=== PATIENT | female | born 1995 ===

== ENCOUNTER 2023-07-30 23:41 | Inpatient (IN) | payer OTHER, SELFPAY ==
[2023-07-31] VITALS (113 sets, daily range): BP systolic 73–149; BP diastolic 46–119; PULSE 55–199; RESP 16–18; TEMP 36.6–37.4; O2SAT 79–100; BMI 29.1
[2023-07-31] MEDS: LACTATED RINGERS 1,000 ML 125 ML IV CONT ×2 (00:10→01:00)
[2023-07-31 00:25] LABS: Basophils Percent Auto 0.3 % (0.2-1.2); Eosinophils Percent Auto 0.2 % (0-4.4); Hematocrit 38.5 % (37.0-47.0); Hemoglobin 12.6 g/dL (12.0-15.0); Immature Granulocyte Percent A 0.8 % (0-0.5); Lymphocytes Percent Auto 9.1 % (18.3-44.2); Mean Corpuscular HGB Conc 32.7 g/dl (32-36); Mean Corpuscular Volume 97.7 fl (80-100); Monocytes Absolute Auto 0.3 K/mm3 (0.1-0.6); Monocytes Percent Auto 2.4 % (2.6-8.5); Neutrophils Absolute Auto 11.5 K/mm3 (1.3-6.7); Neutrophils Percent Auto 87.2 % (45.5-73.1); Platelet Count Result 189 k/mm3 (150-375); Red Blood Count 3.94 M/mm3 (4.2-5.4); Red Cell Distribution Width 12.9 % (11.5-14.5); White Blood Count 13.2 K/mm3 (4.5-10.0)
--- NOTE | 2023-07-31 00:43 | P.PNAN_ITS ---
Anes - Eval Pre Procedure Procedure: labor epidural Date/Time: 07/31/23 00:43 Surgeon: darshana Preop Diagnosis: pain during labor Pre Op Diagnosis: Contractions Patient Data Age: 28 Gender: F Height: 1.63 m Weight: 77 kg Last Vital Signs Pulse 59 L 07/31/23 00:32 BP 149/74 H 07/31/23 00:32 O2 Del Method Room Air 07/31/23 00:12 Allergies Allergy/AdvReac Type Severity Reaction Status Date / Time No Known Allergies Allergy Verified 07/08/23 12:24 Home Medications Medication Instructions Recorded Confirmed Type vits no.126-ferrous fum 1 tablet PO DAILY 07/08/23 07/31/23 History 28 mg iron-folic acid 800 mcg tablet (Classic ) Laboratory Tests 07/31/23 00:11 WBC 13.2 H K/mm3 (4.5-10.0) RBC 3.94 L M/mm3 (4.2-5.4) Hgb 12.6 g/dL (12.0-15.0) Hct 38.5 % (37.0-47.0) MCV 97.7 fl (80-100) MCH 32.0 pg (26-34) MCHC 32.7 g/dl (32-36) RDW 12.9 % (11.5-14.5) Plt Count 189 k/mm3 (150-375) MPV 11.0 H fl (7.4-10.4) Immature Gran % (Auto) 0.8 H % (0-0.5) Neut % (Auto) 87.2 H % (45.5-73.1) Lymph % (Auto) 9.1 L % (18.3-44.2) [place] % (Auto) 2.4 L % (2.6-8.5) Eos % (Auto) 0.2 % (0-4.4) Baso % (Auto) 0.3 % (0.2-1.2) Lymph # (Auto) 1.20 K/mm3 (0.9-3.2) [place] # (Auto) 0.3 K/mm3 (0.1-0.6) Eos # (Auto) 0.0 K/mm3 (0-0.3) Baso # (Auto) 0.0 K/mm3 (0.0-0.1) Abs Immat Gran (auto) 0.10 H K/mm3 (0.00-0.031) Absolute Neuts (auto) 11.5 H K/mm3 (1.3-6.7) Absolute Nucleated RBC 0.0 K/mm3 (0.0-0.012) Nucleated RBC % 0.0 % (0.0-0.2) RPR Pending Patient hx anesthesia problems: none Family hx anesthesia problems: none Results Review: All pre-operative results and documents have been reviewed as part of the pre- operative evaluation. [facility] Past Medical History Medical History (Updated 07/31/23 @ 00:43 by Tanya Suarez CRNA) IUP (intrauterine ), incidental Family History Family History (Updated 07/08/23 @ 12:37 by Kira Jessica RN) Grandparent Diabetes mellitus Family history of lung cancer MDS (myelodysplastic syndrome) Social History Social History Smoking status: Never smoker Alcohol intake: never Substance use: never Lack of Transportation: No Lack of Food: Never True Current Housing: I Have Housing Concerned About Future Housing: No Difficulty Paying Gas/Electric Bills: No Difficulty Paying for Meds: No Currently Unemployed: No Education: Master's Degree or Higher Difficulty w/ Childcare or Family Care: No Spiritual care concerns: No Exam Day of Procedure 07/31/23 00:43
--- NOTE | 2023-07-31 02:32 | WPDOBADMIT ---
Obstetrics - Admit Note Admission Note: record reviewed. Additions to the history and/or subsequent changes in the physical findings follow. 28 y/oG1 at 40 1/7 weeks here with contractions since 11am, worsening over the evening. GBS neg. uncomplicated. AVSS NST reactive TOCO: contractions every 3-6 min ABD soft, nontender, gravid, vertex EXT nontender Cervix 8-9/100/-1 A: IUP at term with labor P: Augment as needed.
[2023-07-31] MEDS: OXYTOCIN 30 UNITS/NS 500 ML 30 UNITS/500 ML BAG IV CONT (03:06)
--- NOTE | 2023-07-31 06:13 | PM.OBPRVD ---
OB - Delivery Note Procedure Delivery date: 07/31/23 Procedure: Induction method: None Delivery monitor: External FHT and External Uterine Route of delivery: Episiotomy description: Midline Delivery repair: vicryl (3-0) Specimen: Yes Quantitative Blood Loss (ml): 85 Anesthesia type: Epidural Disposition: PACU Complications: None Narrative: 28 y/o G1 at 40 1/7 weeks gestation who presented to the hospital with contractions. Her cervix was found to be 7 cm dilated at the time of admission. There was no amniotic sac detected, and time of ROM was unknown. She received an epidural for pain control. Her labor progressed slowly. We attempted oxytocin augmentation, but FHR abnormalities prevented augmentation. Her cervix dilated completely. She pushed with good effort. A midline episiotomy was made, and the infant's head delivered to the perineum. A loose nuchal cord was splinted and the body delivered. The cord was reduced. The nose and mouth were bulb suctioned. The cord was clamped and cut. The was handed off the field. Cord blood was collected. The placenta delivered spontaneously and was grossly normal in appearance. The usual 3 vessel cord was noted. The MLE was noted to be free of extension and was repaired using 3 0 Vicryl in the usual layered fashion. Excellent hemostasis resulted as did excellent reapproximation of the normal anatomy. Needle and instrument counts were correct. The patient was taken to recovery room in stable condition. The infant went to the nursery in stable condition. I was present and scrubbed for the entire delivery. Baby Date of : 07/31/23 Time of : 05:56 Weeks of gestation at delivery: 40 gender: Male Weight (pounds): 5 Weight (ounces): 12 presentation: vertex position: Left Occiput Anterior Placenta delivery description: Spontaneous and Normal Configuration Cord Vessel Description: 3 Vessels, Nuchal Cord and Clamped/Cut score one minute: 3 score five minutes: 9
--- NOTE | 2023-07-31 06:21 | PM.OBDSVD ---
DS: Admitting Diagnosis Discharge Date 08/01/23 Admitting Diagnosis IUP at 40 1/7 weeks Labor DS: Discharge Diagnosis Discharge Diagnosis (1) (normal spontaneous vaginal delivery): Code(s): O80 - Encounter for full-term uncomplicated delivery Status: Acute OB - DS: Summary OB Procedures : None OB Procedures Intrapartum: Spontaneous Vag Delivery OB Procedures: : None Time Spent with Patient Time attestation: Total time spent providing and/or coordinating discharge services: DS: Data Data Completed and Pending Labs on day of discharge: Labs from last 24 hours 07/31/23 00:11 WBC 13.2 H RBC 3.94 L Hgb 12.6 Hct 38.5 MCV 97.7 MCH 32.0 MCHC 32.7 RDW 12.9 Plt Count 189 MPV 11.0 H Immature Gran % (Auto) 0.8 H Neut % (Auto) 87.2 H Lymph % (Auto) 9.1 L [place] % (Auto) 2.4 L Eos % (Auto) 0.2 Baso % (Auto) 0.3 Lymph # (Auto) 1.20 [place] # (Auto) 0.3 Eos # (Auto) 0.0 Baso # (Auto) 0.0 Abs Immat Gran (auto) 0.10 H Absolute Neuts (auto) 11.5 H Absolute Nucleated RBC 0.0 Nucleated RBC % 0.0 RPR Pending Blood Type O Positive Antibody Screen Negative Discharge Plan Discharge Attending physician on discharge: Marty Good Consulting providers: Tanya Suarez Discharging Clinician: Marty Good Patient Disposition: Home, Self-Care Activity: pelvic rest Diet: regular Discharge Instructions: Call or return if temperature above 100.4? F, increased abdominal pain, increased vaginal bleeding or any new problems. Education: Mom and Baby Guide Given to: Mother Follow-Up: Call your delivering provider's office for an appointment to be seen in: 6 Weeks Mom and baby should come to the [facility] for the follow-up appointment. Appointment Date/Time: August 02, 2023 at 8:00 am What to expect at your follow-up visit: Physical Assessment Call [phone] if you are unable to keep your appointment time. BREAST CARE: * Wear a snug supportive bra. * For engorgement discomfort: Breast Feeding: * Apply warm moist washcloths * Express milk as needed to relieve engorgement * Wear loose clothing Bottle Feeding: * May apply ice packs * For sore nipples: * Identify correct latch-on * Apply warm moist washcloths before and after nursing * Air dry nipples after nursing * May apply Lansinoh cream to nipples EPISIOTOMY/PERINEAL CARE: * Until bleeding stops, use your mana bottle after urinating * Change your pad frequently throughout the day * You may take sitz baths several times a day (fill your bathtub with warm water and soak for 20 minutes.) Do NOT bathe in the water * No tub baths until seen by your physician - You may shower ACTIVITY: * Rest as much as possible. * Do not exercise or lift anything heavier than your baby (such as laundry or other children.) * Avoid stairs or driving as much as possible. * Do not put anything into the vagina. No douching, tampons, or sexual activity until seen by physician. NOTIFY PHYSICIAN IF YOU HAVE ANY QUESTIONS OR IF ANY OF THE FOLLOWING SYMPTOMS OCCUR: * If your episiotomy becomes red, swollen, or more painful than what you have experienced in the hospital. * If your vaginal bleeding becomes foul smelling. * If your vaginal bleeding becomes more heavy than a period or if your bleeding changes from pink to bright red. However, you may pass an occasional walnut-sized clot once or twice for the first week . * If you experience a sharp, shooting pain in you calves. * If you discover a hard, reddened area on your breast or if you experience flu-like symptoms. DIET: * Eat regular, well-balanced meals. * Drink plenty of fluids daily. If , drink to thirst. Stand Alone Forms: General Discharge Information Follow-up/Referrals: Marty Good MD
[2023-07-31] MEDS: OXYTOCIN 30 UNITS/NS 500 ML 30 UNITS/500 ML BAG 125 UNITS IV CONT (06:31)
[2023-07-31] MEDS: BENZOCAINE 20% AER SPR (*SP) 56 GM CAN 1 SPRAY TOPICAL (08:16)
[2023-07-31] MEDS: WITCH HAZEL 40 PADS 1 PAD TOPICAL (08:16)
[2023-07-31] MEDS: IBUPROFEN 600 MG TABLET PO ×3 (08:50→23:06)
--- NOTE | 2023-07-31 09:00 | PC.NURSE ---
Pt arrived from L&D to room 279. VSS, pitocin infusing, admission completed, resting quietly.
[2023-07-31 11:06] LABS: Rapid Plasma Reagin Non-Reactive (NonReactive)
[2023-07-31] MEDS: MULTIVIT/MIN/PREN/FOL AC/IRON TABLET 1 TAB PO (13:58)
[2023-08-01 04:52] LABS: Hematocrit 35.4 % (37.0-47.0); Hemoglobin 11.4 g/dL (12.0-15.0)
[2023-08-01] MEDS: MULTIVIT/MIN/PREN/FOL AC/IRON TABLET 1 TAB PO (07:15)
[2023-08-01] MEDS: IBUPROFEN 600 MG TABLET PO (07:15)
--- NOTE | 2023-08-01 07:56 | PM.DS ---
DS: Admitting Diagnosis Discharge Date 08/01/2023 Admitting Diagnosis term DS: Discharge Diagnosis Discharge Diagnosis (1) (normal spontaneous vaginal delivery): Code(s): O80 - Encounter for full-term uncomplicated delivery Status: Acute DS: Summary Hospital Course Reason for hospitalization: patient was admitted in labor Hospital Course: patient underwent spontaneous vaginal delivery which was unremarkable. Her hospital course unremarkable. She was , voiding the difficulty, eating regular diet, ambulating, generally without complaints. Time Spent with Patient Time attestation: Total time spent providing and/or coordinating discharge services: Exam Const: General: cooperative, healthy appearing and comfortable Nutritional Appearance: average body habitus Orientation/consciousness: oriented to person, oriented to place and oriented to time HENMT: Head: normal to inspection Resp: Effort & Inspection: normal respiratory effort Cardio: Rate: regular rate Rhythm: regular rhythm Heart sounds: S1 normal heart sound present and S2 normal heart sound present GI: Inspection: normal to inspection ( Fundus firm below umbilicus) DS: Data Data Completed and Pending Labs on day of discharge: Labs from last 24 hours 08/01/23 07/31/23 04:15 00:11 Hgb 11.4 L Hct 35.4 L RPR Non-reactive Discharge Plan Discharge Attending physician on discharge: Marty Good Discharging Clinician: Marty Good Patient Disposition: Home, Self-Care Activity: pelvic rest Diet: regular Discharge Instructions: Call or return if temperature above 100.4? F, increased abdominal pain, increased vaginal bleeding or any new problems. Stand Alone Forms: General Discharge Information Follow-up/Referrals: Marty Good MD [Physician] - 6 Weeks Discharge Medications: New ibuprofen 600 mg tablet 600 mg PO Q6H PRN (Reason: cramps) Qty: 30 0RF Continued Classic 28 mg iron- 800 mcg Tablet 1 tablet PO DAILY Date of admission: 07/30/23 23:41 Primary Care Provider: PHYSICIAN,ENGINEERING SPECIALIST TECHNICIAN Admitting Provider: Marty Good Attending physician on admission: Marty Good Condition: Stable
--- NOTE | 2023-08-01 07:58 | PM.OBPNVD ---
OB - PN: Subj Subjective Date/time seen: 08/01/23 07:58 Patient comments: no complaints and pain well controlled baby status: doing well and nursing well OB - PN: Obj Data Labs 08/01/23 04:15 Labs: Laboratory Results - last 24 hr 07/31/23 08/01/23 00:11 04:15 Hgb 11.4 L Hct 35.4 L RPR Non-reactive OB - PN A/P Plan day: 1 Plan: routine care, discharge home and follow up 6 weeks Time Spent With Patient Time: Total time spent is greater than 50% in coordination of care (as documented) at patient's floor/unit and/or counseling patient: Time with patient: less than 15 minutes Exam Const: General: cooperative, healthy appearing and comfortable Nutritional Appearance: average body habitus Orientation/consciousness: oriented to person, oriented to place and oriented to time Resp: Effort & Inspection: normal respiratory effort GI: Inspection: normal to inspection ( fundus firm below the umbilicus)
[2023-08-01 08:15] VITALS: BP 113/67; PULSE 68; RESP 16; TEMP 36.4; O2SAT 100
--- NOTE | 2023-08-01 10:49 | PC.NURSE ---
Patient viewed the discharge video Mother & Baby Care, The First Two Weeks . Patient was given the opportunity and encouraged to ask questions. Patient verbalized understanding of information shared and has been given the mother/baby guide for home reference.
--- NOTE | 2023-08-01 10:55 | PC.NURSE ---
[id number] Introductions were made, then consulted with patient to assess needs related to . Mother led the conversation with her?plans to feed?her infant, the?experience so far and is demonstrating an independent latch to the left breast using cross cradle positioning. Reviewed positioning, alignment with infants body close to mother. Education given to mother of how to visualize suck/swallows. Infant was able to maintain latch without discomfort to mother. Nipple care reviewed with optimal latch and good positioning. Reminding mother of comfort measures of healing with a warm and wet washcloth to rinse breast, then leave open to air-dry as needed. Reviewed good handwashing when or touching the breast/nipples to prevent infection. Resources used to facilitate learning were used with the mom and baby guide. Mother voiced understanding of skin to skin, stimulating with massage touch, responsive feedings, hand expressed colostrum, talking to to encourage if it has been 2 -2.5 hours since the start of the last , to call if infant does not latch, or if there is discomfort with . Resources provided for inpatient/outpatient with name written on the communcation board and the mom/baby guide. Parents voiced understanding of information, demonstrated learning and will call if there is a request for assistance. Reported to the Primary RN.
[2023-08-02 08:23] VITALS: BP 131/75; PULSE 82; RESP 18; TEMP 36.9; O2SAT 100
== END 2023-08-01 12:32 | disposition home or self-care (01) | DRG 807 ==
LOC: ANHLDR 07-31 06:22 → ANHOB2 07-31 08:40
PROVIDERS: Admitting Provider Obstetrics & Gynecology; Visit Provider Obstetrics & Gynecology
DX: O32.6XX0 Maternal care for compound presentation, not applicable or unspecified (principal); Z37.0 Single live birth; Z3A.40 40 weeks gestation of pregnancy; O69.81X0 Labor and delivery complicated by cord around neck, without compression, not applicable or unspecified
CPT/HCPCS: 36415; 85014; 85018; 85025; 86592; 86850; 86900; 86901; A9270; J2590; J2795; J7120

== ENCOUNTER 2025-04-15 01:35 | Inpatient (IN) | payer OTHER, SELFPAY ==
[2025-04-15] VITALS (99 sets, daily range): BP systolic 84–153; BP diastolic 34–126; PULSE 57–112; RESP 16–18; TEMP 36.4–37.3; O2SAT 79–100; BMI 30.9
--- NOTE | 2025-04-15 03:01 | LDADM ---
This patient, Deysi Sotomayor, was admitted to Labor/Delivery/Recovery 106 on 04/15/25 at 01:35. Plans for labor, pain management and were discussed with patient. Patient/family oriented to hospital policies and general routines including ID bracelet, bed and alarms, visiting hours, pain management, procedures, bathroom and other care routines, personal items, smoking policy, room service/diet and guest tray routines, security routines, and visiting hours. Patient/Family are encouraged to report perceived risks to care and to ask questions if they do not understand what they are told or what they should do. See OBIX for further documentation.
[2025-04-15] MEDS: LACTATED RINGERS 1,000 ML 125 ML IV CONT ×2 (03:15→03:54)
[2025-04-15 03:25] LABS: Basophils Absolute Auto 0.1 K/mm3 (0.0-0.1); Basophils Percent Auto 0.5 % (0.2-1.2); Eosinophils Absolute Auto 0.2 K/mm3 (0-0.3); Eosinophils Percent Auto 1.2 % (0-4.4); Hematocrit 34.2 % (37.0-47.0); Hemoglobin 10.4 g/dL (12.0-15.0); Immature Granulocyte Absolute 0.06 K/mm3 (0.00-0.031); Immature Granulocyte Percent A 0.5 % (0-0.5); Lymphocytes Absolute Auto 1.66 K/mm3 (0.9-3.2); Lymphocytes Percent Auto 12.9 % (18.3-44.2); Mean Corpuscular HGB Conc 30.4 g/dl (32-36); Mean Corpuscular Hemoglobin 27.7 pg (26-34); Mean Corpuscular Volume 91.2 fl (80-100); Mean Platelet Volume 11.5 fl (7.4-10.4); Monocytes Absolute Auto 0.7 K/mm3 (0.1-0.6); Monocytes Percent Auto 5.7 % (2.6-8.5); Neutrophils Absolute Auto 10.2 K/mm3 (1.3-6.7); Neutrophils Percent Auto 79.2 % (45.5-73.1); Platelet Count Result 183 k/mm3 (150-375); Red Blood Count 3.75 M/mm3 (4.2-5.4); Red Cell Distribution Width 13.6 % (11.5-14.5); White Blood Count 12.9 K/mm3 (4.5-10.0)
--- NOTE | 2025-04-15 04:02 | P.PNAN_ITS ---
Anes - Eval Pre Procedure Procedure: labor pain management Date/Time: 04/15/25 04:02 Surgeon: Fadi Hubbard Preop Diagnosis: pain during labor Pre Op Diagnosis: Contractions Patient Data Age: 29 Gender: F Height: 1.63 m Weight: 81.81 kg Last Vital Signs Pulse 83 04/15/25 04:00 BP 127/80 04/15/25 04:00 Pulse Ox 98 04/15/25 03:58 O2 Del Method Room Air 04/15/25 03:01 Allergies Allergy/AdvReac Type Severity Reaction Status Date / Time No Known Allergies Allergy Verified 07/08/23 12:24 Home Medications ?Medication ?Instructions ?Recorded ?Confirmed ?Type vits no.126-ferrous fum 1 tablet PO DAILY 07/08/23 03/29/25 History 28 mg iron-folic acid 800 mcg tablet (Classic ) Laboratory Tests 04/15/25 03:17 WBC 12.9 H K/mm3 (4.5-10.0) RBC 3.75 L M/mm3 (4.2-5.4) Hgb 10.4 L g/dL (12.0-15.0) Hct 34.2 L % (37.0-47.0) MCV 91.2 fl (80-100) MCH 27.7 pg (26-34) MCHC 30.4 L g/dl (32-36) RDW 13.6 % (11.5-14.5) Plt Count 183 k/mm3 (150-375) MPV 11.5 H fl (7.4-10.4) Immature Gran % (Auto) 0.5 % (0-0.5) Neut % (Auto) 79.2 H % (45.5-73.1) Lymph % (Auto) 12.9 L % (18.3-44.2) [place] % (Auto) 5.7 % (2.6-8.5) Eos % (Auto) 1.2 % (0-4.4) Baso % (Auto) 0.5 % (0.2-1.2) Lymph # (Auto) 1.66 K/mm3 (0.9-3.2) [place] # (Auto) 0.7 H K/mm3 (0.1-0.6) Eos # (Auto) 0.2 K/mm3 (0-0.3) Baso # (Auto) 0.1 K/mm3 (0.0-0.1) Abs Immat Gran (auto) 0.06 H K/mm3 (0.00-0.031) Absolute Neuts (auto) 10.2 H K/mm3 (1.3-6.7) Absolute Nucleated RBC 0.000 K/mm3 (0.0-0.012) Nucleated RBC % 0.0 % (0.0-0.2) HIV 1&2 Ab/P24 Ag 4thGn Pending Patient hx anesthesia problems: none Family hx anesthesia problems: none Results Review: All pre-operative results and documents have been reviewed as part of the pre- operative evaluation. [facility] Past Medical History Medical History IUP (intrauterine ), incidental Family History Family History Grandparent Diabetes mellitus Family history of lung cancer MDS (myelodysplastic syndrome) Social History Social History Smoking status: Never smoker Second hand tobacco smoke exposure: No Alcohol intake: never Substance use: never Do You Feel Safe in your Home?: Yes Lack of Transportation: No Lack of Food: Never True Current Housing: I Have Housing Concerned About Future Housing: No Difficulty Paying Gas/Electric Bills: No Difficulty Paying for Meds: No Currently Unemployed: No Education: Master's Degree or Higher Difficulty w/ Childcare or Family Care: No Spiritual care concerns: No Exam Day of Procedure 04/15/25 04:02
[2025-04-15 04:12] LABS: Syphilis IgG/IgM Antibody Negative (Negative)
[2025-04-15 04:37] LABS: HIV 1/2 Ab P24 Ag Result Negative (Negative)
[2025-04-15] MEDS: PHENYLEPHRINE 1,000 MCG/10 ML SYRINGE 100 MCG IV PUSH ×3 (04:55→05:20)
--- NOTE | 2025-04-15 05:49 | P.HP_ITS ---
H&P: HPI History of Present Illness Date/Time: 04/15/25 05:49 Chief Complaint: Labor at term Narrative: A 28-year-old 2 para with EDC of 04/18/2025 confirmed by 9 week ultrasound presents at 39 half weeks gestation in active labor she is negative for group B strep in her has been uncomplicated Review of Systems Review of Systems: All systems reviewed & are unremarkable except as noted in HPI and below PMFSH Past Medical History Medical History IUP (intrauterine ), incidental Family History Family History Grandparent Diabetes mellitus Family history of lung cancer MDS (myelodysplastic syndrome) Social History Social History Smoking status: Never smoker Second hand tobacco smoke exposure: No Alcohol intake: never Substance use: never Do You Feel Safe in your Home?: Yes Lack of Transportation: No Lack of Food: Never True Current Housing: I Have Housing Concerned About Future Housing: No Difficulty Paying Gas/Electric Bills: No Difficulty Paying for Meds: No Currently Unemployed: No Education: Master's Degree or Higher Difficulty w/ Childcare or Family Care: No Spiritual care concerns: No Meds Home Medications and Allergies Home Medications ?Medication ?Instructions ?Recorded ?Confirmed ?Type vits no.126-ferrous fum 1 tablet PO DAILY 07/08/23 03/29/25 History 28 mg iron-folic acid 800 mcg tablet (Classic ) Allergies Allergy/AdvReac Type Severity Reaction Status Date / Time No Known Allergies Allergy Verified 07/08/23 12:24 Vital Signs Vital Signs - 24 hr 04/15/25 03:01 04/15/25 03:21 04/15/25 03:30 Temperature Pulse Rate 75 82 Blood Pressure 114/67 121/72 Pulse Oximetry Oxygen Delivery Room Air 04/15/25 03:45 04/15/25 03:58 04/15/25 04:00 Temperature Pulse Rate 79 83 Blood Pressure 122/81 127/80 Pulse Oximetry 98 Oxygen Delivery 04/15/25 04:02 04/15/25 04:03 04/15/25 04:08 Temperature 98 F Pulse Rate Blood Pressure Pulse Oximetry 97 96 Oxygen Delivery 04/15/25 04:09 04/15/25 04:11 04/15/25 04:12 Temperature Pulse Rate 102 H 81 77 Blood Pressure 133/81 123/69 127/69 Pulse Oximetry Oxygen Delivery 04/15/25 04:13 04/15/25 04:15 04/15/25 04:18 Temperature Pulse Rate 78 Blood Pressure 112/65 Pulse Oximetry 97 97 Oxygen Delivery 04/15/25 04:19 04/15/25 04:20 04/15/25 04:22 Temperature Pulse Rate 78 91 Blood Pressure 84/37 L 101/51 L Pulse Oximetry 99 97 Oxygen Delivery 04/15/25 04:23 04/15/25 04:25 04/15/25 04:27 Temperature Pulse Rate 69 80 Blood Pressure 139/76 135/67 Pulse Oximetry 95 Oxygen Delivery 04/15/25 04:28 04/15/25 04:30 04/15/25 04:32 Temperature Pulse Rate 86 94 Blood Pressure 127/64 114/73 Pulse Oximetry 99 Oxygen Delivery 04/15/25 04:33 04/15/25 04:35 04/15/25 04:37 Temperature Pulse Rate 93 86 Blood Pressure 128/66 126/67 Pulse Oximetry 99 Oxygen Delivery 04/15/25 04:38 04/15/25 04:40 04/15/25 04:42 Temperature Pulse Rate 90 91 Blood Pressure 137/79 111/74 Pulse Oximetry 98 Oxygen Delivery 04/15/25 04:45 04/15/25 04:47 04/15/25 04:50 Temperature Pulse Rate 86 81 79 Blood Pressure 120/56 L 116/51 L 123/55 L Pulse Oximetry 98 Oxygen Delivery 04/15/25 04:53 04/15/25 04:55 04/15/25 04:56 Temperature Pulse Rate 83 83 Blood Pressure 95/47 L 102/34 L Pulse Oximetry 93 99 Oxygen Delivery 04/15/25 04:58 04/15/25 05:00 04/15/25 05:01 Temperature Pulse Rate 68 91 Blood Pressure 109/56 L 99/41 L Pulse Oximetry 100 Oxygen Delivery 04/15/25 05:03 04/15/25 05:15 04/15/25 05:16 Temperature Pulse Rate 70 76 Blood Pressure 85/36 L 88/35 L Pulse Oximetry 93 79 L Oxygen Delivery 04/15/25 05:20 04/15/25 05:25 04/15/25 05:30 Temperature Pulse Rate 81 Blood Pressure 106/59 L Pulse Oximetry 100 100 99 Oxygen Delivery 04/15/25 05:35 04/15/25 05:40 04/15/25 05:45 Temperature Pulse Rate Blood Pressure Pulse Oximetry 99 99 100 Oxygen Delivery 04/15/25 05:46 Temperature Pulse Rate 109 H Blood Pressure 153/126 H Pulse Oximetry Oxygen Delivery Exam Const: General: cooperative, healthy appearing and comfortable Nutritional Appearance: average body habitus Orientation/consciousness: oriented to person, oriented to place and oriented to time HENMT: Head: normal to inspection Resp: Effort & Inspection: normal respiratory effort Cardio: Rate: regular rate Rhythm: regular rhythm Heart sounds: S1 normal heart sound present and S2 normal heart sound present GI: Inspection: normal to inspection (Gravid soft uterus) : External Female Exam: normal external appearance Speculum Exam - Vagina: normal appearance of the vagina Speculum Exam - Cervix: normal appea andrez of the cervix (Cervix 4/90/-2. AROM a meconium. FHTs reassuring) H&P: Results Labs Labs: Short CBC 04/15/25 Range/Units 03:17 WBC 12.9 H (4.5-10.0) K/mm3 Hgb 10.4 L (12.0-15.0) g/dL Hct 34.2 L (37.0-47.0) % Plt Count 183 (150-375) k/mm3 Assessment and Plan Assessment and plan (1) IUP (intrauterine ), incidental: Code(s): Z33.1 - state, incidental Status: Acute Plan Epidural is the marking. Spontaneous vaginal delivery is expected. Pediatrics made aware of meconium
[2025-04-15] MEDS: ONDANSETRON INJ 4 MG/2 ML VIAL IV PUSH (05:50)
[2025-04-15] MEDS: OXYTOCIN 30 UNITS/NS 500 ML 30 UNITS/500 ML BAG IV CONT (06:43)
--- NOTE | 2025-04-15 08:48 | PM.OBPRVD ---
OB - Vaginal Delivery Note Procedure Delivery date: 04/15/25 Induction method: None Delivery monitor: External FHT and External Uterine Route of delivery: Episiotomy description: None Laceration Description: Perineal - 1st Degree Delivery repair: vicryl Specimen: No Quantitative Blood Loss (ml): 62 Anesthesia type: Epidural Disposition: Floor Complications: No immediate complications [place] Baby Date of : 04/15/25 Time of : 08:41 Gestational Age by Date: 39 Infant gender: Female presentation: vertex position: Right Occiput Anterior Placenta delivery description: Spontaneous Cord Vessel Description: 3 Vessels, Nuchal Cord, Loose and Reduced score one minute: 8 score five minutes: 8 Narrative: Patient was admitted in active labor at 39 weeks gestation artificial rupture membranes performed and meconium stained fluid seen suppress unremarkable 1st stage of labor got to completely dilated which in complete she pushed delivered the GEE position. Nuchal cord checked noted loose times a loss but. Anterior shoulder delivered spontaneously. Cord clamped times and cut infant passed off the table given Apgars of 8 [id number] and 8 [id number]. Cord blood was drawn placenta delivered intact spontaneously. Twenty of Pitocin placed IV to help firm the uterus first-degree midline laceration was noted a [id number] suture placed to reapproximate the mucosa QBL was 62cc. All sponge, needle, instrument counts were correct. There were no immediate complications
--- NOTE | 2025-04-15 08:50 | P.DS_ITS ---
DS: Admitting Diagnosis Discharge Date 04/16/2025 Admitting Diagnosis Term DS: Discharge Diagnosis Discharge Diagnosis (1) IUP (intrauterine ), incidental: Code(s): Z33.1 - state, incidental Status: Acute DS: Summary Hospital Course Reason for hospitalization: Patient was admitted in active labor on 04/15 25. She underwent spontaneous vaginal delivery with epidural anesthesia Hospital Course: Patient's hospital course unremarkable. She remained afebrile. She was up, voiding without difficulty, eating regular diet, ambulating, generally without complaints. Time Spent with Patient Time attestation: Total time spent providing and/or coordinating discharge services: Exam Const: General: cooperative, healthy appearing and comfortable Nutritional Appearance: average body habitus Orientation/consciousness: oriented to person, oriented to place and oriented to time HENMT: Head: normal to inspection Resp: Effort & Inspection: normal respiratory effort Cardio: Rate: regular rate Rhythm: regular rhythm Heart sounds: S1 normal heart sound present and S2 normal heart sound present GI: Inspection: normal to inspection (Gravid soft uterus) : External Female Exam: normal external appearance Speculum Exam - Vagina: normal appearance of the vagina Speculum Exam - Cervix: normal appearance of the cervix (Cervix 4/90/-2. AROM a meconium. FHTs reassuring) DS: Data Data Completed and Pending Labs on day of discharge: Labs from last 24 hours 04/15/25 04/15/25 04:00 03:17 WBC 12.9 H RBC 3.75 L Hgb 10.4 L Hct 34.2 L MCV 91.2 MCH 27.7 MCHC 30.4 L RDW 13.6 Plt Count 183 MPV 11.5 H Immature Gran % (Auto) 0.5 Neut % (Auto) 79.2 H Lymph % (Auto) 12.9 L [place] % (Auto) 5.7 Eos % (Auto) 1.2 Baso % (Auto) 0.5 Lymph # (Auto) 1.66 [place] # (Auto) 0.7 H Eos # (Auto) 0.2 Baso # (Auto) 0.1 Abs Immat Gran (auto) 0.06 H Absolute Neuts (auto) 10.2 H Absolute Nucleated RBC 0.000 Nucleated RBC % 0.0 Syphilis IgG/IgM Ab Negative HIV 1&2 Ab/P24 Ag 4thGn Negative Blood Type O Positive Antibody Screen Negative Discharge Plan Discharge Attending physician on discharge: Marty Good Discharging Clinician: Marty Good Patient Disposition: Home Activity: may shower, no straining and pelvic rest Diet: heart healthy Wound Care Instructions: follow printed instructions Patient Instructions: Antibiotic Form Patient Language: British Stand Alone Forms: General Discharge Information Follow-up/Referrals: Marty Good MD [Physician] - Discharge Medications: Continued Classic 28 mg iron- 800 mcg Tablet 1 tablet PO DAILY Date of admission: 04/15/25 01:35 Primary Care Provider: PHYSICIAN,LOOM FIXER Admitting Provider: Marty Good Attending physician on admission: Marty Good Condition: Stable
[2025-04-15] MEDS: OXYTOCIN 30 UNITS/NS 500 ML 30 UNITS/500 ML BAG 125 UNITS IV CONT (09:34)
--- NOTE | 2025-04-15 11:25 | OBPPTRN ---
Patient transferred to post room #284 via wheelchair. Support person present. Oriented to unit, room, information board, rooming in, admission packet and security measures. Patient verbalizes understanding.
[2025-04-15] MEDS: BENZOCAINE 20% AER SPR (*SP) 56 GM CAN 1 SPRAY TOPICAL (12:49)
[2025-04-15] MEDS: WITCH HAZEL 40 PADS 1 PAD TOPICAL (12:49)
[2025-04-15] MEDS: MULTIVIT/MIN/PREN/FOL AC/IRON TABLET 1 TAB PO (12:50)
[2025-04-15] MEDS: DOCUSATE SODIUM 100 MG CAPSULE PO (12:50)
--- NOTE | 2025-04-15 13:50 | PC.NURSE ---
1320. Introductions were made, then consulted with patient to assess needs related to . Discussed with mother her plans to feed her and the experience so far. Mom explains she plans to breastfeed until her milk really starts to come in and then she would like to switch to pumping and feeding. She reports this is what she did with her first baby and it works for her. She also reports that she has been able to breastfeed a few time so far with no pain. Encouraged mother to express any questions or concerns she has regarding feedings and to call the next feeding so RN can check her latch. Advised her to call out for a latch check or if she needs assistance waking or positioning baby. Reviewed the blue feeding worksheet for required output and feeding at least 8-12 times every 24 hours. Resources provided for inpatient and outpatient services with the feeding sheet, mom/baby guide, and name/number written on the communication board. Mother voiced understanding of information and will call if there is a request for assistance. Reported to the Primary RN?
--- NOTE | 2025-04-15 15:14 | PC.NURSE ---
1430. Mom called to have RN check her latch. was a little reluctant and sleepy, but mom was able to get her to latch optimally after a few repeated attempts. Mother latched to the left breast in cross cradle position. was able to maintain an appropriate latch. Mother declines nipple pain/discomfort throughout feeding. Encouraged mother to keep infant awake and nursing at the breast for 15 minutes. Mother taught to listen for swallowing during feedings. Reviewed using the blue feeding sheet to record time and duration of feeding. Mother voiced understanding of the education shared, to call for assistance if the infant does not latch or if there is discomfort with . name/number on communication board. Reported to the Primary RN.?
[2025-04-16 01:00] VITALS: BP 123/73; PULSE 71; RESP 18; TEMP 36.5; O2SAT 98
[2025-04-16] MEDS: IBUPROFEN 600 MG TABLET PO ×2 (02:39→14:47)
[2025-04-16 04:00] LABS: Hematocrit 35.5 % (37.0-47.0); Hemoglobin 11.1 g/dL (12.0-15.0)
--- NOTE | 2025-04-16 06:27 | P.PNOB_ITS ---
OB - PN: Subj Subjective Date/time seen: 04/16/25 06:27 Patient comments: no complaints, pain well controlled and tolerating diet [place] baby status: doing well OB - PN: Obj Data Labs 04/16/25 03:55 Labs: Laboratory Results - last 24 hr 04/16/25 03:55 Hgb 11.1 L Hct 35.5 L OB - PN A/P Assessment and Plan (1) (normal spontaneous vaginal delivery): Code(s): O80 - Encounter for full-term uncomplicated delivery Status: Acute (2) IUP (intrauterine ), incidental: Code(s): Z33.1 - state, incidental Status: Acute Plan Comments: home Time Spent With Patient Time: Total time spent is greater than 50% in coordination of care (as documented) at patient's floor/unit and/or counseling patient: Review of Systems 2 Review of Systems: All systems reviewed & are unremarkable except as noted in HPI and below Exam 2 Const: General: cooperative, healthy appearing and comfortable Nutritional Appearance: average body habitus Orientation/consciousness: oriented to person, oriented to place and oriented to time HENMT: Head: normal to inspection Resp: Effort & Inspection: normal respiratory effort Cardio: Rate: regular rate Rhythm: regular rhythm Heart sounds: S1 normal heart sound present and S2 normal heart sound present GI: Inspection: normal to inspection (Gravid soft uterus) : External Female Exam: normal external appearance Speculum Exam - Vagina: normal appearance of the vagina Speculum Exam - Cervix: normal appearance of the cervix (Cervix 4/90/-2. AROM a meconium. FHTs reassuring)
[2025-04-16 07:10] VITALS: BP 107/55; PULSE 99; RESP 18; TEMP 37.1; O2SAT 99
[2025-04-16] MEDS: MULTIVIT/MIN/PREN/FOL AC/IRON TABLET 1 TAB PO (07:59)
--- NOTE | 2025-04-16 14:35 | PC.NURSE ---
Mother verbalizes she is able to independently latch with appropriate positioning and alignment. She states some nipple discomfort occasionally and is responsively . Encouraged her to break the latch if there is pinching and to call for assistance or a latch check. is currently meeting outcomes for weight, output, jaundice, blood sugar and feeding frequencies of 8-12 times in 24 hours. Mother declines any additional assistance or education at this time. She has a breast pump for home use and plans to mostly pump and bottle feed like she did with her first child. Mother is encouraged to call for assistance if her infant doesn?t latch, pain with latching, questions or concerns. Mother voiced understanding of information shared along with the mom/baby guide for an additional resource. Reported to the Primary RN.
[2025-04-16 21:00] VITALS: BP 111/81; PULSE 65; RESP 16; TEMP 36.4; O2SAT 100
--- NOTE | 2025-04-17 08:35 | PC.NURSE ---
Mom is confident with and pumping. She plans to pump and bottle feed at home like she did with her last baby. She has a personal breast pump for home use. Offered outpatient resources with WIC referral (declined) and Services at [facility]. Patient has the Mom/Baby Guide for further education and reference for common concerns, phone numbers, and guidance on when to call the doctor. A feeding plan was added to the infant?s discharge plan. Patient states that she has no further questions or concerns regarding .?
[2025-04-17] MEDS: MULTIVIT/MIN/PREN/FOL AC/IRON TABLET 1 TAB PO (08:43)
[2025-04-17] MEDS: DOCUSATE SODIUM 100 MG CAPSULE PO (08:43)
[2025-04-17 09:31] VITALS: BP 115/75; PULSE 64; RESP 18; TEMP 36.6; O2SAT 98
[2025-04-18 10:33] VITALS: BP 120/64; PULSE 100; RESP 18; TEMP 36.8; O2SAT 100
== END 2025-04-17 12:20 | disposition home or self-care (01) | DRG 807 ==
LOC: ANHLDR 08:52 → ANHOB2 11:27
PROVIDERS: Admitting Provider Obstetrics & Gynecology; Visit Provider Obstetrics & Gynecology
DX: O69.81X0 Labor and delivery complicated by cord around neck, without compression, not applicable or unspecified (principal); Z37.0 Single live birth; O70.0 First degree perineal laceration during delivery; O77.0 Labor and delivery complicated by meconium in amniotic fluid; O62.3 Precipitate labor; Z3A.39 39 weeks gestation of pregnancy
CPT/HCPCS: 36415; 85014; 85018; 85025; 86593; 86703; 86850; 86900; 86901; A9270; G0432; J2371; J2405; J2590; J2795; J7120